=== PATIENT | female | born 1970 | race Caucasian/White ===

== ENCOUNTER 2016-04-01 11:07 | Day surgery (SDC) | payer OTHER ==
[~2016-04-01] VITALS: Ht 144.8 cm; Wt 113.6 kg
[2016-04-01] MEDS ORDERED: [UNRECOGNIZED DRUG - CODE] PO (12:23)
[2016-04-01] MEDS ORDERED: LORA5SOL74 PO (12:23)
[2016-04-01] MEDS ORDERED: ASPI-664 PO (12:23)
[2016-04-01] MEDS ORDERED: FLUT9.9S NASAL (12:23)
[2016-04-01] MEDS ORDERED: TOPI25CA PO (12:23)
[2016-04-01] MEDS ORDERED: BUTA1CAP38 PO (12:23)
[2016-04-01] MEDS ORDERED: LOSA50TA6 PO (12:23)
[2016-04-01] MEDS ORDERED: GABA300S PO (12:23)
[2016-04-01] MEDS ORDERED: METF500T PO (12:23)
[2016-04-01] MEDS ORDERED: LEVO300T PO (12:23)
[2016-04-01 13:06] VITALS: BP 146/68; PULSE 77; RESP 22
[2016-04-01 13:07] VITALS: Ht 144.8 cm; Wt 113.6 kg
[2016-04-01] MEDS ORDERED: LIDOCAINE 4% SOLUTION 50 ML BTL ONE (13:09)
[2016-04-01] MEDS ORDERED: PROPOFOL 40 ML ONE (13:11)
[2016-04-01 14:10] VITALS: BP 140/76; PULSE 68; RESP 17
--- NOTE | 2016-04-02 03:10 | GILP ---
DATE OF PROCEDURE: 04/01/2016 PREOPERATIVE DIAGNOSIS: Severe gastroesophageal reflux symptoms with obesity. PROCEDURE DONE: Esophagogastroduodenoscopy biopsy. ANESTHESIOLOGIST: Dr. Whipple. POSTOPERATIVE DIAGNOSIS: 1. Small hiatus hernia. 2. Very minimal esophagitis at the GE junction. 3. Antral erosions. DESCRIPTION OF PROCEDURE: The patient was put in left lateral decubitus after obtaining informed co nsent and was sedated and monitored by the anesthesiologist. I very carefully advanced the Olympus video upper endoscope into the esophagus, stomach, and duodenum. At the GE junction, mild esophagit is noted, and a small hiatus hernia noted including by retroflexion, this was confirmed. The rest o f the stomach examined and showed body of the stomach normal, but the antrum had multiple erosions. Superficial early ulcerations noted. Photography done. Biopsies done randomly in the stomach to r ule out H. pylori also. Duodenal bulb easily entered, and examination of the pyloric channel, duode nal bulb, and first and second part of the duodenum normal. Scope was slowly withdrawn after biopsi es in the stomach. The patient had no complication. PLAN: Will be to wait for biopsy report. Meanwhile, continue PPI. I advise her to lose body weigh t. We will proceed with colonoscopy as planned. Dictated By: RONNIE HAYNES Conf#: [id number] DID#: [id number] CC: Jovanni Kline MD;*End*
--- NOTE | 2016-04-02 03:12 | GILP ---
DATE OF PROCEDURE: 04/01/2016 PREOPERATIVE DIAGNOSES: 1. Diarrhea. 2. Abdominal pain in the lower abdomen. ANESTHESIA: Because of her medical condition, anesthesia was requested. Dr. Whipple sedated the patien t. DESCRIPTION OF PROCEDURE: After EGD, further monitoring and sedation done by the anesthesiologist. An Olympus video colonoscope was advanced after rectal examination, and examination of the entire co celeste was carried out. The findings are as follows. Cecum, ascending colon, appendiceal opening, and ileocecal valve were identified. These were normal. Transverse colon normal. Descending colon hollis d multiple diverticula. Sigmoid colon had moderate to severe diverticulosis. Within this, a small polyp was found. This seems to enter into a diverticulum and then come out, and this was captured, biopsied with jumbo biopsy forceps, removed, and sent to histopathology. In the rectum, by antegrad e and retrograde retroflexion, internal hemorrhoids and external hemorrhoids noted. Upon removal of the scope, the patient had no complication. FINAL IMPRESSION: 1. Internal and external hemorrhoids. 2. Diverticulosis in left colon. 3. One polyp at 20 cm, biopsied and removed. PLAN: Will be to wait for biopsy report, follow up as outpatient, and repeat colonoscopy in 2 to 3 years. Dictated By: RONNIE HAYNES Conf#: [id number] DID#: [id number] CC: Jovanni Kline MD;*EndCC*
== END 2016-04-01 15:26 | disposition home or self-care (01) ==
LOC: GIL 11:07
PROVIDERS: ATTEND Internal Medicine
DX: K29.30 Chronic superficial gastritis without bleeding (principal); K64.8 Other hemorrhoids; K64.4 Residual hemorrhoidal skin tags; K57.90 Diverticulosis of intestine, part unspecified, without perforation or abscess without bleeding; K63.5 Polyp of colon; K44.9 Diaphragmatic hernia without obstruction or gangrene; K20.8 Other esophagitis; E11.9 Type 2 diabetes mellitus without complications; I10 Essential (primary) hypertension; E03.9 Hypothyroidism, unspecified; E66.01 Morbid (severe) obesity due to excess calories; Z68.43 Body mass index [BMI] 50.0-59.9, adult; J45.909 Unspecified asthma, uncomplicated
CPT/HCPCS: 43239; 45380; 82962; 84703; 88305; 88312; Z7610